=== PATIENT | male | born 1980 | race Caucasian/White ===

== ENCOUNTER 2019-12-04 08:18 | Inpatient (IN) | payer OTHER ==
--- NOTE | 2019-12-04 08:36 | BHS.RME ---
Substance Use & Tx History - Substance Use History Alcohol Substance amount: 2 pints Vodka Frequency of use: Daily Substance route: Oral Date of Last Use: 12/04/19 (First use age 13 y. No seizures. Yes blackouts, last was 2 nights ago. 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) Cocaine- Powder Substance amount: 1-3 grams Frequency of use: Less than 3 times per week Substance route: Inhalation (ex: sniffing or snorting) Date of Last Use: 12/03/19 (First use age 17 y) Nicotine Substance amount: 2 packs Frequency of use: Daily Substance route: Smoking Date of Last Use: 12/04/19 (Began age 13 y) - Last Treatment Date of last treatment: 11/18/28 to 11/21/19 Physical/Psych/Mental Status - Behavior General Behavior: Decreased activity Eye Contact: Normal - Cooperativeness Cooperativeness: Cooperative - Thinking Thought Processes: Tight Thought content: Future oriented - Physical Health Problems Is patient presently having any pain?: No Does patient presently have any injuries (include location): No Does patient currently have a fever: No CIWA Nausea/Vomitin Muscle Tremors: 2 Anxiety: 3 Agitation: 0-Normal Activity Paroxysmal Sweats: No Perspiration Orientation: 0-Oriented Tacttile Disturbances: 1-Very Mild Itch/Numbness Auditory Disturbances: 2-Mild Harshness/Frighten Visual Disturbances: 2-Mild Sensitivity Headache: 3-Moderate CIWA-Ar Total Score: 16
--- NOTE | 2019-12-04 09:38 | HP ---
CIWA Score Nausea/Vomitin Muscle Tremors: 2 Anxiety: 3 Agitation: 0-Normal Activity Paroxysmal Sweats: No Perspiration Orientation: 0-Oriented Tacttile Disturbances: 1-Very Mild Itch/Numbness Auditory Disturbances: 2-Mild Harshness/Frighten Visual Disturbances: 2-Mild Sensitivity Headache: 3-Moderate CIWA-Ar Total Score: 16 - Admission Criteria [facility]ASAS Guidelines: Admission for Medically Managed Detox: Requires at least one of the followin. CIWA greater than 12 2. Seizures within the past 24 hours 3. Delirium tremens within the past 24 hours 4. Hallucinations within the past 24 hours 5. Acute intervention needed for co occurring medical disorder 6. Acute intervention needed for co occurring psychiatric disorder 7. Severe withdrawal that cannot be handled at a lower level of care (continued vomiting, continued diarrhea, abnormal vital signs) requiring intravenous medication and/or fluids 8. Admitting History and Physical - Admission Chief Complaint: Mr. Perales is a 39 yo gentleman who presents to [facility] stating he is here for "alcohol and drug addiction". History of Present Illness: Mr. Perales is a 39 yo gentleman who presents to [facility] stating he is here for "alcohol and drug addiction". He was last here on November 18 and left AMA on November 20. Additionally, he left [facility] in October of this year stating he had "bills to be paid". PMH/Psych/Legal: none PSH:appendectomy, bilateral carpal tunnel release SOC: lives with girlfriend Substance Use History Alcohol Substance amount: 2 pints Vodka Frequency of use: Daily Substance route: Oral Date of Last Use: 12/04/19 (First use age 13 y. No seizures. Yes blackouts, last was 2 nights ago. 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) Cocaine- Powder Substance amount: 1-3 grams Frequency of use: Less than 3 times per week Substance route: Inhalation (ex: sniffing or snorting) Date of Last Use: 12/03/19 (First use age 17 y) Nicotine Substance amount: 2 packs Frequency of use: Daily Substance route: Smoking Date of Last Use: 12/04/19 (Began age 13 y) - Last Treatment Date of last treatment: 11/18/28 to 11/21/19 - Past Surgical History Past Surgical History: Yes: Appendectomy - Smoking History Smoking history: Current every day smoker Have you smoked in the past 12 months: Yes Aproximately how many cigarettes per day: 20 - Alcohol/Substance Use Hx Alcohol Use: Yes Number of Drinks Daily: 20 History of Substance Use: reports: Cocaine - Social History ADL: Independent Occupation: unemployed History of Recent Travel: No Admission ROS BHS - HPI Allergies/Adverse Reactions: Allergies Allergy/AdvReac Type Severity Reaction Status Date / Time aspirin Allergy Severe Difficulty Verified 12/04/19 09:30 Breathing shellfish derived Allergy Severe Swelling Verified 12/04/19 09:30 Exam Limitations: No Limitations - Ebola screening Have you traveled outside of the country in the last 21 days: No Have you been sick,other than usual withdrawal symptoms: No Do you have a fever: No - Review of Systems Constitutional: Loss of Appetite EENT: reports: Hearing Loss (left ear) Respiratory: reports: No Symptoms reported Cardiac: reports: No Symptoms Reported GI: reports: Nausea, Vomiting : reports: Other (hesitancy) Musculoskeletal: reports: No Symptoms Reported Integumentary: reports: No Symptoms Reported Neuro: reports: Headache Endocrine: reports: No Symptoms Reported Hematology: reports: No Symptoms Reported Psychiatric: reports: Anxious Patient History - Patient Medical History Hx Anemia: No Hx Asthma: No Hx Chronic Obstructive Pulmonary Disease (COPD): No Hx Cancer: No Hx Cardiac Disorders: No Hx Congestive Heart Failure: No Hx Hypertension: No Hx Hypercholesterolemia: No Hx Pacemaker: No HX Cerebrovascular Accident: No Hx Seizures: No Hx Dementia: No Hx Diabetes: No Hx Gastrointestinal Disorders: No Hx Liver Disease: No Hx Genitourinary Disorders: No Hx Sexually Transmitted Disorders: No Hx Renal Disease (ESRD): No Hx Thyroid Disease: No Hx Human Immunodeficiency Virus (HIV): No Hx Hepatitis C: No Hx Depression: No Hx Suicide Attempt: No Hx Bipolar Disorder: No Hx Schizophrenia: No - Patient Surgical History Past Surgical History: Yes Hx Neurologic Surgery: No Hx Cataract Extraction: No Hx Cardiac Surgery: No Hx Lung Surgery: No Hx Breast Surgery: No Hx Breast Biopsy: No Hx Abdominal Surgery: No Hx Appendectomy: Yes Hx Cholecystectomy: No Hx Genitourinary Surgery: No Hx Section: No Hx Orthopedic Surgery: Yes (carpal tunnel surgeries bilaterally) Hx Hysterectomy: No Anesthesia Reaction: No - PPD History Date: 10/26/19 - Smoking Cessation Smoking history: Current every day smoker Have you smoked in the past 12 months: Yes Aproximately how many cigarettes per day: 20 Hx Chewing Tobacco Use: No Initiated information on smoking cessation: Yes 'Breaking Loose' booklet given: 12/04/19 - Substances abused Alcohol Substance route: Oral Frequency: Daily Amount used: 3 pints Age of first use: 13 Date of last use: 12/04/19 Admission Physical Exam [facility] - Physical General Appearance: Yes: Nourished, Intoxicated HEENTM: Yes: Hearing grossly Normal, Normocephalic, Normal Voice Respiratory: Yes: Lungs Clear, Normal Breath Sounds Neck: Yes: Within Normal Limits, Supple Breast: Yes: Breast Exam Deferred Cardiology: Yes: Regular Rhythm, Regular Rate, S1, S2 Abdominal: Yes: Normal Bowel Sounds, Non Tender, Flat, Soft Genitourinary: Yes: Other (deferred) Back: Yes: Normal Inspection Musculoskeletal: Yes: Gait Steady Extremities: Yes: Normal Inspection, Non-Tender Neurological: Yes: Alert, Normal Mood/Affect, Normal Response Integumentary: Yes: Normal Color, Dry, Warm - Diagnostic (1) Cocaine use disorder Current Visit: Yes Status: Acute (2) Alcohol dependence with withdrawal Current Visit: Yes Status: Acute Qualifiers: Complication of substance-induced condition: uncomplicated Qualified Code(s): F10.230 - Alcohol dependence with withdrawal, uncomplicated (3) Nicotine dependence Current Visit: Yes Status: Acute Qualifiers: Nicotine product type: cigarettes Substance use status: uncomplicated Qualified Code(s): F17.210 - Nicotine dependence, cigarettes, uncomplicated Cleared for Admission [facility] - Detox or Rehab [facility] Level of Care: Medically Managed Detox Regimen/Protocol: Librium Breathalyzer - Breathalyzer Breathalyzer: 0.230 Urine Drug Screen - Test Device Lot number: [id number] Expiration date: 02/01/21 - Control Is test valid?: Yes - Results Drug screen NEGATIVE: No Urine drug screen results: ARMEN-Cocaine, BZO-Benzodiazepines Inpatient Rehab Admission - Rehab Decision to Admit Inpatient rehab admission?: No
[2019-12-04 09:40] VITALS: BMI 29.6
[2019-12-04] MEDS ORDERED: ACETAMINOPHEN 325 MG TABLET (FP) PO PRN (09:42)
[2019-12-04] MEDS ORDERED: IBUPROFEN 400 MG TABLET (FP) PO PRN (09:42)
[2019-12-04] MEDS ORDERED: MENTHOL/PHENOL 1 EACH UD MM PRN (09:42)
[2019-12-04] MEDS ORDERED: ONDANSETRON *ODT* 4 MG TABLET SL PRN (09:42)
[2019-12-04] MEDS ORDERED: chlordiazePOXIDE HCL 25 MG CAPSULE PO PRN (09:42)
[2019-12-04] MEDS ORDERED: BISMUTH SUBSALICYLATE 524 MG/30 ML UD PO PRN (09:42)
[2019-12-04] MEDS ORDERED: MAGNESIUM HYDROX 2400MG/30ML ORAL SUSPENSION 30 ML CUP PO PRN (09:42)
[2019-12-04] MEDS ORDERED: MAG HYDROX/AL HYDROX/SIMETH 30 ML UNIT-DOSE CUP PO PRN (09:42)
[2019-12-04] MEDS ORDERED: MAGNESIUM CITRATE 300 ML BOTTLE PO PRN (09:42)
[2019-12-04] MEDS ORDERED: hydrOXYzine PAMOATE 25 MG CAPSULE (FP) PO SCH (10:00)
--- NOTE | 2019-12-04 11:22 | CONSULT ---
[facility] Psychiatric Consult - Data Date of interview: 12/04/19 Admission source: Self-referred Identifying data: Mr Pulido is a 39 years old single male, unemployed receiving unemployment, domiciled seeking detox treatment for alcohol and cocaine Substance Abuse History: Reports history of alcohol and cocaine use. Refer to addition counselor's summary for further information Medical History: Significant for history of childhood asthma, appendectomy at age 15 and surgery for carpal tunnel syndrome both hands. Smokes cigarettes 1 ppd Psychiatric History: Patient is known for two previous admission to this facility. He denies history of previous previous psychiatric treatment. However, reports suffering from anxiety and insomnia. During his first admission to this facility, he saw JONATHAN Farmer on 10/26/19 and he was prescribed Gabapentin 200 mg/tid and Melatonin 10 mg/hs prn for insomnia. He saw specifications writer on his second admission on 11/20/19 and he was prescribed Vistaril 50 mg po Q 4hrs prn for anxiety and Melatonin 10 mg/hs prn for insomnia. Denies previous psychiatric hospitalization or suicidal attempt. At present, reports feeling depressed, anxious and sleeping poorly. Requests to be ordered Vistaril and Melatonin. Physical/Sexual Abuse/Trauma History: Denies history of abuse as a child or DV relationship as an adult Mental Status Exam - Mental Status Exam Alert and Oriented to: Time, Person Mood: Depressed, Anxious Affect: Appropriate Speech Pattern: Clear Voice Loudness: Normal Thought Process: Intact, Goal Oriented Hallucinations: Denies Suicidal Ideation: Denies Homicidal Ideation: Denies Insight/Judgement: Poor Sleep: Poorly Appetite: Poor Muscle strength/Tone: Normal Gait/Station: Normal Psychiatric Findings - Problem List ([place] 1, 2,3) (1) Substance induced mood disorder Current Visit: No Status: Acute (2) Substance-induced anxiety disorder Current Visit: No Status: Acute (3) Substance-induced sleep disorder Current Visit: No Status: Acute (4) Alcohol dependence with withdrawal Current Visit: Yes Status: Acute Qualifiers: Complication of substance-induced condition: uncomplicated Qualified Code(s): F10.230 - Alcohol dependence with withdrawal, uncomplicated (5) Cocaine use disorder Current Visit: Yes Status: Acute (6) Nicotine dependence Current Visit: Yes Status: Chronic Qualifiers: Nicotine product type: cigarettes Substance use status: uncomplicated Qualified Code(s): F17.210 - Nicotine dependence, cigarettes, uncomplicated (7) Carpal tunnel syndrome on both sides Current Visit: No Status: Resolved (8) S/P appendectomy Current Visit: No Status: Resolved - Initial Treatment Plan Initial Treatment Plan: 1) Start Vistaril 50 mg po Q 4hrs prn for anxiety and Melatonin 50 mg HS prn for insomnia. 2) Continue inpatient detoxification
[2019-12-04] MEDS: NICOTINE 21 MG/24 HOURS TOPICAL PATCH TD SCH (11:27)
[2019-12-04] MEDS: PRENATAL VITAMINS W/ FOLIC ACID TABLET (FP) PO SCH (11:28)
[2019-12-04] MEDS: chlordiazePOXIDE HCL 25 MG CAPSULE PO SCH ×3 (11:28→22:30)
[2019-12-04] MEDS: NICOTINE POLACRILEX 2 MG GUM BUC PRN ×3 (11:29→22:36)
[2019-12-04] MEDS ORDERED: hydrOXYzine PAMOATE 25 MG CAPSULE (FP) PO ONE (12:00)
[2019-12-04 15:18] LABS: HEMATOCRIT 48.8 % (35.4-49); MCH 30.6 pg (25.7-33.7); MCHC 32.9 g/dl (32.0-35.9); MEAN CELL VOLUME 93.2 fl (80-96); MEAN PLT VOLUME 9.1 fl (7.5-11.1); PLATELET COUNT 242 K/MM3 (134-434); RBC 5.23 M/mm3 (4.00-5.60)
[2019-12-04 15:36] LABS: ALBUMIN 4.1 g/dl (3.4-5.0); BLOOD UREA NITROGEN 15.6 mg/dL (7-18); CALCIUM 8.6 mg/dL (8.5-10.1); CREATININE 0.9 mg/dL (0.55-1.3); POTASSIUM 3.9 mmol/L (3.5-5.1); TOT PROT 7.8 g/dl (6.4-8.2)
[2019-12-04 15:42] LABS: BILIRUBIN,TOTAL 0.6 mg/dL (0.2-1)
[2019-12-04] MEDS: ACETAMINOPHEN 325 MG TABLET (FP) PO PRN (17:33)
[2019-12-04] MEDS: hydrOXYzine PAMOATE 50 MG CAPSULE (FP) PO PRN ×2 (17:33→22:34)
[2019-12-04] MEDS ORDERED: MELATONIN 5 MG TABLETS PO SCH (22:00)
[2019-12-04] MEDS: THIAMINE HCL 100 MG TABLET (FP) PO SCH (22:30)
[2019-12-04] MEDS: MELATONIN 5 MG TABLETS PO PRN (22:31)
[2019-12-05] MEDS: chlordiazePOXIDE HCL 25 MG CAPSULE PO SCH ×4 (05:28→22:04)
[2019-12-05] MEDS: hydrOXYzine PAMOATE 50 MG CAPSULE (FP) PO PRN ×4 (05:30→22:04)
[2019-12-05] MEDS: ACETAMINOPHEN 325 MG TABLET (FP) PO PRN ×4 (05:36→23:07)
[2019-12-05] MEDS: NICOTINE POLACRILEX 2 MG GUM BUC PRN (05:37)
[2019-12-05] MEDS: PRENATAL VITAMINS W/ FOLIC ACID TABLET (FP) PO SCH (10:34)
[2019-12-05] MEDS: NICOTINE 21 MG/24 HOURS TOPICAL PATCH TD SCH (10:34)
[2019-12-05] MEDS: NICOTINE POLACRILEX 4 MG GUM BUC PRN ×5 (10:40→22:05)
--- NOTE | 2019-12-05 11:38 | PN ---
S CIWA - CIWA Score Nausea/Vomitin Muscle Tremors: 3 Anxiety: 3 Agitation: 3 Paroxysmal Sweats: No Perspiration Orientation: 0-Oriented Tacttile Disturbances: 1-Very Mild Itch/Numbness Auditory Disturbances: 0-None Visual Disturbances: 0-None Headache: 2-Mild CIWA-Ar Total Score: 14 S Progress Note (SOAP) Subjective: alert,irritable,anxious,interrupted sleep,tremor,pain in the body and back,nausea Objective: 12/05/19 11:36 Vital Signs Temperature 97.3 F L 12/05/19 08:30 Pulse Rate 75 12/05/19 08:30 Respiratory Rate 18 12/05/19 08:30 Blood Pressure 134/94 12/05/19 08:30 O2 Sat by Pulse Oximetry (%) 98 12/05/19 06:18 12/05/19 11:36 Laboratory Last Values WBC 7.0 K/mm3 (4.0-10.0) 12/04/19 11:20 RBC 5.23 M/mm3 (4.00-5.60) 12/04/19 11:20 Hgb 16.0 GM/dL (11.7-16.9) 12/04/19 11:20 Hct 48.8 % (35.4-49) 12/04/19 11:20 MCV 93.2 fl (80-96) 12/04/19 11:20 MCH 30.6 pg (25.7-33.7) 12/04/19 11:20 MCHC 32.9 g/dl (32.0-35.9) 12/04/19 11:20 RDW 14.0 % (11.9-15.9) 12/04/19 11:20 Plt Count 242 K/MM3 (134-434) 12/04/19 11:20 MPV 9.1 fl (7.5-11.1) 12/04/19 11:20 Sodium 145 mmol/L (136-145) 12/04/19 11:20 Potassium 3.9 mmol/L (3.5-5.1) 12/04/19 11:20 Chloride 108 mmol/L (98-107) H 12/04/19 11:20 Carbon Dioxide 28 mmol/L (21-32) 12/04/19 11:20 Anion Gap 9 MMOL/L (8-16) 12/04/19 11:20 BUN 15.6 mg/dL (7-18) 12/04/19 11:20 Creatinine 0.9 mg/dL (0.55-1.3) 12/04/19 11:20 Est GFR (CKD-EPI)AfAm 123.39 12/04/19 11:20 Est GFR (CKD-EPI)NonAf 106.46 12/04/19 11:20 Random Glucose 86 mg/dL (74-106) 12/04/19 11:20 Calcium 8.6 mg/dL (8.5-10.1) 12/04/19 11:20 Total Bilirubin 0.6 mg/dL (0.2-1) 12/04/19 11:20 AST 38 U/L (15-37) H 12/04/19 11:20 ALT 62 U/L (13-61) H 12/04/19 11:20 Alkaline Phosphatase 71 U/L (45-117) 12/04/19 11:20 Total Protein 7.8 g/dl (6.4-8.2) 12/04/19 11:20 Albumin 4.1 g/dl (3.4-5.0) 12/04/19 11:20 Syphilis Serology Non-reactive (NONREACTIVE) 12/04/19 11:20 Assessment: 12/05/19 11:37 withdrawal symptom Plan: continue detox librium regimen
[2019-12-05] MEDS: MELATONIN 5 MG TABLETS PO PRN (22:03)
[2019-12-05] MEDS: THIAMINE HCL 100 MG TABLET (FP) PO SCH (22:03)
[2019-12-05] MEDS: METHOCARBAMOL 500 MG TABLET PO PRN (22:04)
[2019-12-06] MEDS: NICOTINE POLACRILEX 4 MG GUM BUC PRN ×6 (03:53→22:30)
[2019-12-06] MEDS: ACETAMINOPHEN 325 MG TABLET (FP) PO PRN ×3 (05:35→22:27)
[2019-12-06] MEDS: hydrOXYzine PAMOATE 50 MG CAPSULE (FP) PO PRN ×4 (05:35→19:54)
[2019-12-06] MEDS: chlordiazePOXIDE HCL 25 MG CAPSULE PO SCH ×4 (05:35→22:25)
[2019-12-06] MEDS: METHOCARBAMOL 500 MG TABLET PO PRN ×2 (06:19→22:26)
[2019-12-06] MEDS: NICOTINE 21 MG/24 HOURS TOPICAL PATCH TD SCH (10:27)
[2019-12-06] MEDS: PRENATAL VITAMINS W/ FOLIC ACID TABLET (FP) PO SCH (10:27)
[2019-12-06] MEDS ORDERED: cloNIDine HCL 0.1 MG TABLET PO ONE (13:09)
--- NOTE | 2019-12-06 13:33 | PN ---
S CIWA - CIWA Score Nausea/Vomitin-No Nausea/No Vomiting Muscle Tremors: None Anxiety: 6 Agitation: 4-Moderately Restless Paroxysmal Sweats: 3 Orientation: 0-Oriented Tacttile Disturbances: 1-Very Mild Itch/Numbness Auditory Disturbances: 0-None Visual Disturbances: 0-None Headache: 0-None Present CIWA-Ar Total Score: 14 BHS Progress Note (SOAP) Subjective: Anxious, Restless, Sweating, Interrupted Sleep. Objective: Patient A & O X 3, Observed Ambulating on Detox Unit Unassisted. In No Acute Distress. 12/06/19 13:30 Vital Signs Temperature 97.1 F L 12/06/19 12:20 Pulse Rate 67 12/06/19 12:20 Respiratory Rate 16 12/06/19 12:20 Blood Pressure 121/91 12/06/19 12:20 O2 Sat by Pulse Oximetry (%) 98 12/06/19 12:20 Laboratory Tests 12/04/19 12/04/19 12/04/19 11:20 11:20 11:20 WBC 7.0 RBC 5.23 Hgb 16.0 Hct 48.8 MCV 93.2 MCH 30.6 MCHC 32.9 RDW 14.0 Plt Count 242 MPV 9.1 Sodium 145 Potassium 3.9 Chloride 108 H Carbon Dioxide 28 Anion Gap 9 BUN 15.6 Creatinine 0.9 Est GFR (CKD-EPI)AfAm 123.39 Est GFR (CKD-EPI)NonAf 106.46 Random Glucose 86 Calcium 8.6 Total Bilirubin 0.6 AST 38 H ALT 62 H Alkaline Phosphatase 71 Total Protein 7.8 Albumin 4.1 Syphilis Serology Non-reactive COVID-19 ([facility]) 12/04/19 11:30 WBC RBC Hgb Hct MCV MCH MCHC RDW Plt Count MPV Sodium Potassium Chloride Carbon Dioxide Anion Gap BUN Creatinine Est GFR (CKD-EPI)AfAm Est GFR (CKD-EPI)NonAf Random Glucose Calcium Total Bilirubin AST ALT Alkaline Phosphatase Total Protein Albumin Syphilis Serology COVID-19 ([facility]) Not detected Lab Results Noted. Assessment: 12/06/19 13:31 WITHDRAWAL SYMPTOMS. Laboratory Tests 12/04/19 12/04/19 12/04/19 11:20 11:20 11:20 WBC 7.0 RBC 5.23 Hgb 16.0 Hct 48.8 MCV 93.2 MCH 30.6 MCHC 32.9 RDW 14.0 Plt Count 242 MPV 9.1 Sodium 145 Potassium 3.9 Chloride 108 H Carbon Dioxide 28 Anion Gap 9 BUN 15.6 Creatinine 0.9 Est GFR (CKD-EPI)AfAm 123.39 Est GFR (CKD-EPI)NonAf 106.46 Random Glucose 86 Calcium 8.6 Total Bilirubin 0.6 AST 38 H ALT 62 H Alkaline Phosphatase 71 Total Protein 7.8 Albumin 4.1 Syphilis Serology Non-reactive COVID-19 ([facility]) 12/04/19 11:30 WBC RBC Hgb Hct MCV MCH MCHC RDW Plt Count MPV Sodium Potassium Chloride Carbon Dioxide Anion Gap BUN Creatinine Est GFR (CKD-EPI)AfAm Est GFR (CKD-EPI)NonAf Random Glucose Calcium Total Bilirubin AST ALT Alkaline Phosphatase Total Protein Albumin Syphilis Serology COVID-19 ([facility]) Not detected Lab Results noted. Plan: Continue Detox. Increase daily oral Water Intake. PRN LIbrium for severe Anxiety and withdrawal symptoms. Clonidine, 0.1 mg orally X 1 dose ordered for severe Anxiety and withdrawal symptoms.
[2019-12-06] MEDS: MELATONIN 5 MG TABLETS PO PRN (22:26)
[2019-12-06] MEDS: THIAMINE HCL 100 MG TABLET (FP) PO SCH (22:26)
[2019-12-07] MEDS ORDERED: chlordiazePOXIDE HCL 10 MG CAPSULE PO PRN
[2019-12-07] MEDS: hydrOXYzine PAMOATE 50 MG CAPSULE (FP) PO PRN (05:19)
[2019-12-07] MEDS: ACETAMINOPHEN 325 MG TABLET (FP) PO PRN (05:19)
[2019-12-07] MEDS: chlordiazePOXIDE HCL 10 MG CAPSULE PO SCH ×2 (05:19→11:08)
[2019-12-07] MEDS: NICOTINE POLACRILEX 4 MG GUM BUC PRN (05:20)
[2019-12-07 09:10] VITALS: BP 115/73; PULSE 90; TEMP 98.3
[2019-12-07] MEDS: NICOTINE 21 MG/24 HOURS TOPICAL PATCH TD SCH (10:37)
[2019-12-07] MEDS: PRENATAL VITAMINS W/ FOLIC ACID TABLET (FP) PO SCH (10:37)
--- NOTE | 2019-12-07 11:01 | PN ---
[facility] CIWA - CIWA Score Nausea/Vomitin-No Nausea/No Vomiting Muscle Tremors: 1-None Visible, but [place] Anxiety: 3 Agitation: 2 Paroxysmal Sweats: No Perspiration Orientation: 0-Oriented Tacttile Disturbances: 0-None Auditory Disturbances: 1-Very Mild Visual Disturbances: 0-None Headache: 0-None Present CIWA-Ar Total Score: 7 S Progress Note (SOAP) Subjective: Complaining of anxiety and agitation related to his friend's brother's a few days ago and wants to go today. Objective: 12/07/19 10:59 Vital Signs 12/07/19 12/07/19 12/07/19 03:32 05:15 08:47 Temperature 97.5 F L 98.3 F Pulse Rate 97 H 90 Respiratory 18 16 16 Rate Blood Pressure 116/70 115/73 O2 Sat by Pulse 99 Oximetry (%) Laboratory Last Values WBC 7.0 K/mm3 (4.0-10.0) 12/04/19 11:20 RBC 5.23 M/mm3 (4.00-5.60) 12/04/19 11:20 Hgb 16.0 GM/dL (11.7-16.9) 12/04/19 11:20 Hct 48.8 % (35.4-49) 12/04/19 11:20 MCV 93.2 fl (80-96) 12/04/19 11:20 MCH 30.6 pg (25.7-33.7) 12/04/19 11:20 MCHC 32.9 g/dl (32.0-35.9) 12/04/19 11:20 RDW 14.0 % (11.9-15.9) 12/04/19 11:20 Plt Count 242 K/MM3 (134-434) 12/04/19 11:20 MPV 9.1 fl (7.5-11.1) 12/04/19 11:20 Sodium 145 mmol/L (136-145) 12/04/19 11:20 Potassium 3.9 mmol/L (3.5-5.1) 12/04/19 11:20 Chloride 108 mmol/L (98-107) H 12/04/19 11:20 Carbon Dioxide 28 mmol/L (21-32) 12/04/19 11:20 Anion Gap 9 MMOL/L (8-16) 12/04/19 11:20 BUN 15.6 mg/dL (7-18) 12/04/19 11:20 Creatinine 0.9 mg/dL (0.55-1.3) 12/04/19 11:20 Est GFR (CKD-EPI)AfAm 123.39 12/04/19 11:20 Est GFR (CKD-EPI)NonAf 106.46 12/04/19 11:20 Random Glucose 86 mg/dL (74-106) 12/04/19 11:20 Calcium 8.6 mg/dL (8.5-10.1) 12/04/19 11:20 Total Bilirubin 0.6 mg/dL (0.2-1) 12/04/19 11:20 AST 38 U/L (15-37) H 12/04/19 11:20 ALT 62 U/L (13-61) H 12/04/19 11:20 Alkaline Phosphatase 71 U/L (45-117) 12/04/19 11:20 Total Protein 7.8 g/dl (6.4-8.2) 12/04/19 11:20 Albumin 4.1 g/dl (3.4-5.0) 12/04/19 11:20 Syphilis Serology Non-reactive (NONREACTIVE) 12/04/19 11:20 COVID-19 ([facility]) Not detected (Not Detected) 12/04/19 11:30 Reviewed. Assessment: Alert and oriented x3, in no acute respiratory distress Full ROM, skin warm to touch, ambulatory on unit without assistance. Wants to discharged today. Mild withdrawal symptoms For discharge today. Plan: Discharge today.
--- NOTE | 2019-12-07 11:08 | DS ---
[facility] Detox Discharge Summary Admission Date: 12/04/19 Discharge Date: 12/07/19 - History Present History: Alcohol Dependence, Cocaine Dependence Pertinent Past History: history of appendectomy, Alcohol, Cocaine and Nicotine use disorder. - Physical Exam Results Vital Signs: Vital Signs Temperature 98.3 F 12/07/19 08:47 Pulse Rate 90 12/07/19 08:47 Respiratory Rate 16 12/07/19 08:47 Blood Pressure 115/73 12/07/19 08:47 O2 Sat by Pulse Oximetry (%) 99 12/07/19 05:15 Vital Signs 12/07/19 12/07/19 12/07/19 03:32 05:15 08:47 Temperature 97.5 F L 98.3 F Pulse Rate 97 H 90 Respiratory 18 16 16 Rate Blood Pressure 116/70 115/73 O2 Sat by Pulse 99 Oximetry (%) Laboratory Last Values WBC 7.0 K/mm3 (4.0-10.0) 12/04/19 11:20 RBC 5.23 M/mm3 (4.00-5.60) 12/04/19 11:20 Hgb 16.0 GM/dL (11.7-16.9) 12/04/19 11:20 Hct 48.8 % (35.4-49) 12/04/19 11:20 MCV 93.2 fl (80-96) 12/04/19 11:20 MCH 30.6 pg (25.7-33.7) 12/04/19 11:20 MCHC 32.9 g/dl (32.0-35.9) 12/04/19 11:20 RDW 14.0 % (11.9-15.9) 12/04/19 11:20 Plt Count 242 K/MM3 (134-434) 12/04/19 11:20 MPV 9.1 fl (7.5-11.1) 12/04/19 11:20 Sodium 145 mmol/L (136-145) 12/04/19 11:20 Potassium 3.9 mmol/L (3.5-5.1) 12/04/19 11:20 Chloride 108 mmol/L (98-107) H 12/04/19 11:20 Carbon Dioxide 28 mmol/L (21-32) 12/04/19 11:20 Anion Gap 9 MMOL/L (8-16) 12/04/19 11:20 BUN 15.6 mg/dL (7-18) 12/04/19 11:20 Creatinine 0.9 mg/dL (0.55-1.3) 12/04/19 11:20 Est GFR (CKD-EPI)AfAm 123.39 12/04/19 11:20 Est GFR (CKD-EPI)NonAf 106.46 12/04/19 11:20 Random Glucose 86 mg/dL (74-106) 12/04/19 11:20 Calcium 8.6 mg/dL (8.5-10.1) 12/04/19 11:20 Total Bilirubin 0.6 mg/dL (0.2-1) 12/04/19 11:20 AST 38 U/L (15-37) H 12/04/19 11:20 ALT 62 U/L (13-61) H 12/04/19 11:20 Alkaline Phosphatase 71 U/L (45-117) 12/04/19 11:20 Total Protein 7.8 g/dl (6.4-8.2) 12/04/19 11:20 Albumin 4.1 g/dl (3.4-5.0) 12/04/19 11:20 Syphilis Serology Non-reactive (NONREACTIVE) 12/04/19 11:20 COVID-19 ([facility]) Not detected (Not Detected) 12/04/19 11:30 Labs reviewed. Pertinent Admission Physical Exam Findings: Withdrawal symptoms. - Treatment Hospital Course: Detox Protocol Followed, Detoxed Safely, Responded well, Discharged Condition Good - Medication Discharge Medications: Ambulatory Orders NK [No Known Home Medication] 12/04/19 - Diagnosis (1) Alcohol dependence with withdrawal Current Visit: Yes Status: Acute Qualifiers: Complication of substance-induced condition: uncomplicated Qualified Code(s): F10.230 - Alcohol dependence with withdrawal, uncomplicated (2) Cocaine use disorder Current Visit: Yes Status: Chronic (3) Nicotine dependence Current Visit: Yes Status: Chronic Qualifiers: Nicotine product type: cigarettes Substance use status: uncomplicated Qualified Code(s): F17.210 - Nicotine dependence, cigarettes, uncomplicated - AMA Did Patient Leave Against Medical Advice: No
[2019-12-08] MEDS ORDERED: chlordiazePOXIDE HCL 10 MG CAPSULE PO SCH (05:00)
[2019-12-09] MEDS ORDERED: chlordiazePOXIDE HCL 10 MG CAPSULE PO ONE (05:00)
== END 2019-12-07 11:15 | disposition home or self-care (01) | DRG 774 ==
LOC: YASAS 08:18 → Y6N 10:19
PROVIDERS: ADMIT Allergy & Immunology; ATTEND Allergy & Immunology
PROC: HZ2ZZZZ Detoxification Services for Substance Abuse Treatment (ICD-10-PCS; principal; 2019-12-04)
DX: F10.230 Alcohol dependence with withdrawal, uncomplicated (principal); F14.10 Cocaine abuse, uncomplicated; F17.210 Nicotine dependence, cigarettes, uncomplicated; F19.280 Other psychoactive substance dependence with psychoactive substance-induced anxiety disorder; F19.282 Other psychoactive substance dependence with psychoactive substance-induced sleep disorder; F19.24 Other psychoactive substance dependence with psychoactive substance-induced mood disorder; H91.92 Unspecified hearing loss, left ear; J45.909 Unspecified asthma, uncomplicated; Z87.39 Personal history of other diseases of the musculoskeletal system and connective tissue; Z98.890 Other specified postprocedural states; Z88.6 Allergy status to analgesic agent; Z91.018 Allergy to other foods
CPT/HCPCS: 36415; 80053; 85027; 86780; J0735; U0003

== ENCOUNTER 2019-12-08 09:10 | Inpatient (IN) | payer OTHER ==
--- NOTE | 2019-12-08 09:44 | BHS.RME ---
Substance Use & Tx History - Substance Use History Alcohol Substance amount: 2 pints Vodka Frequency of use: Daily Substance route: Oral Date of Last Use: 12/08/19 (First drink age 13 y. No seizures. Has had blackouts, last one one week ago) Nicotine Substance amount: 1-2 packs Frequency of use: Daily Substance route: Smoking Date of Last Use: 12/08/19 (First smoke age 13 y) Cocaine- Powder Substance amount: 1.5 to 2 grams Frequency of use: Daily Substance route: Inhalation (ex: sniffing or snorting) Date of Last Use: 12/07/19 (First use age 17y) - Last Treatment Date of last treatment: 12/03 to 12/07/19 Treatment type: Substance Use Disorder ([facility]) Where was last treatment: Detox Physical/Psych/Mental Status - Behavior General Behavior: Decreased activity Eye Contact: Normal - Cooperativeness Cooperativeness: Cooperative - Thinking Thought content: Future oriented - Physical Health Problems Is patient presently having any pain?: No Does patient presently have any injuries (include location): Yes (cut right hand on a handle of coffee table yesterday) Does patient currently have a fever: No CIWA Nausea/Vomitin-Mild Nausea/No Vomiting Muscle Tremors: None Anxiety: 2 Agitation: 0-Normal Activity Paroxysmal Sweats: No Perspiration Orientation: 1-Uncertain about Date Tacttile Disturbances: 0-None Auditory Disturbances: 0-None Visual Disturbances: 2-Mild Sensitivity Headache: 2-Mild CIWA-Ar Total Score: 8
--- NOTE | 2019-12-08 11:10 | HP ---
CIWA Score Nausea/Vomitin-Mild Nausea/No Vomiting Muscle Tremors: None Anxiety: 2 Agitation: 0-Normal Activity Paroxysmal Sweats: No Perspiration Orientation: 1-Uncertain about Date Tacttile Disturbances: 0-None Auditory Disturbances: 0-None Visual Disturbances: 2-Mild Sensitivity Headache: 2-Mild CIWA-Ar Total Score: 8 - Admission Criteria OASAS Guidelines: Admission for Medically Managed Detox: Requires at least one of the followin. CIWA greater than 12 2. Seizures within the past 24 hours 3. Delirium tremens within the past 24 hours 4. Hallucinations within the past 24 hours 5. Acute intervention needed for co occurring medical disorder 6. Acute intervention needed for co occurring psychiatric disorder 7. Severe withdrawal that cannot be handled at a lower level of care (continued vomiting, continued diarrhea, abnormal vital signs) requiring intravenous medication and/or fluids 8. Admitting History and Physical - Admission Chief Complaint: Mr. Pulido presents to [facility] requesting admission to rehab for a history of alcohol use disorder. History of Present Illness: Mr. Pulido presents to [facility] requesting admission to rehab for a history of alcohol use disorder. He left here yesterday from detox. He went out and within one hour he began drinking. He also used cocaine. PMH/ Psych//Legal: none PSH: appendectomy, bilateral carpal tunnel release SOC: lives with girlfriend Substance Use History Alcohol Substance amount: 2 pints Vodka Frequency of use: Daily Substance route: Oral Date of Last Use: 12/08/19 (First drink age 13 y. No seizures. Has had blackouts, last one one week ago) Nicotine Substance amount: 1-2 packs Frequency of use: Daily Substance route: Smoking Date of Last Use: 12/08/19 (First smoke age 13 y) Cocaine- Powder Substance amount: 1.5 to 2 grams Frequency of use: Daily Substance route: Inhalation (ex: sniffing or snorting) Date of Last Use: 12/07/19 (First use age 17y) - Last Treatment Date of last treatment: 12/03 to 12/07/19 Treatment type: Substance Use Disorder ([facility]) Where was last treatment: Detox History Source: Patient Limitations to Obtaining History: No Limitations - Past Surgical History Past Surgical History: Yes: Appendectomy - Smoking History Smoking history: Current every day smoker Have you smoked in the past 12 months: Yes Aproximately how many cigarettes per day: 20 - Alcohol/Substance Use Hx Alcohol Use: Yes Number of Drinks Daily: 20 History of Substance Use: reports: Cocaine - Social History ADL: Independent Occupation: unemployed History of Recent Travel: No Admission ROS S - HPI Allergies/Adverse Reactions: Allergies Allergy/AdvReac Type Severity Reaction Status Date / Time aspirin Allergy Severe Difficulty Verified 12/04/19 09:30 Breathing shellfish derived Allergy Severe Swelling Verified 12/04/19 09:30 Exam Limitations: No Limitations - Ebola screening Have you traveled outside of the country in the last 21 days: No Have you been sick,other than usual withdrawal symptoms: No Do you have a fever: No - Review of Systems Constitutional: No Symptoms Reported EENT: reports: No Symptoms Reported Respiratory: reports: No Symptoms reported Cardiac: reports: No Symptoms Reported GI: reports: Vomiting (this am) : reports: Dysuria Musculoskeletal: reports: No Symptoms Reported Integumentary: reports: Other (right hand thenar eminence) Neuro: reports: Headache Endocrine: reports: No Symptoms Reported Hematology: reports: No Symptoms Reported Psychiatric: reports: Anxious Patient History - Patient Medical History Hx Anemia: No Hx Asthma: Yes (childhood asthma) Hx Chronic Obstructive Pulmonary Disease (COPD): No Hx Cancer: No Hx Cardiac Disorders: No Hx Congestive Heart Failure: No Hx Hypertension: No Hx Hypercholesterolemia: No Hx Pacemaker: No HX Cerebrovascular Accident: No Hx Seizures: No Hx Dementia: No Hx Diabetes: No Hx Gastrointestinal Disorders: No Hx Liver Disease: No Hx Genitourinary Disorders: No Hx Sexually Transmitted Disorders: No Hx Renal Disease (ESRD): No Hx Thyroid Disease: No Hx Human Immunodeficiency Virus (HIV): No Hx Hepatitis C: No Hx Depression: Yes Hx Suicide Attempt: No Hx Bipolar Disorder: No Hx Schizophrenia: No - Patient Surgical History Past Surgical History: Yes Hx Neurologic Surgery: No Hx Cataract Extraction: No Hx Cardiac Surgery: No Hx Lung Surgery: No Hx Breast Surgery: No Hx Breast Biopsy: No Hx Abdominal Surgery: No Hx Appendectomy: Yes Hx Cholecystectomy: No Hx Genitourinary Surgery: No Hx Section: No Hx Orthopedic Surgery: Yes (carpal tunnel surgeries bilaterally) Hx Hysterectomy: No Anesthesia Reaction: No - PPD History Date: 12/06/19 Results: left AMA - Smoking Cessation Smoking history: Current every day smoker Have you smoked in the past 12 months: Yes Aproximately how many cigarettes per day: 20 Hx Chewing Tobacco Use: No Initiated information on smoking cessation: Yes 'Breaking Loose' booklet given: 12/08/19 Admission Physical Exam [facility] Physical General Appearance: Yes: Nourished, Anxious HEENTM: Yes: Hearing grossly Normal, Normocephalic, Normal Voice Respiratory: Yes: Lungs Clear, Normal Breath Sounds Neck: Yes: Within Normal Limits, Supple Breast: Yes: Breast Exam Deferred Cardiology: Yes: Regular Rhythm, Regular Rate, S1, S2 Abdominal: Yes: Normal Bowel Sounds, Flat, Soft, Tenderness (mild diffuse tenderness) Back: Yes: Normal Inspection Musculoskeletal: Yes: full range of Motion Extremities: Yes: Normal Inspection, Non-Tender Neurological: Yes: Alert, Normal Response Integumentary: Yes: Normal Color, Dry, Warm, Other (right hand irregular skin break, site clean and dry, pt had butterfly x2 and band aid dressing on site) Cleared for Admission [facility] - Detox or Rehab [facility] Level of Care: Medically Supervised Breathalyzer - Breathalyzer Breathalyzer: 0.014 Urine Drug Screen - Test Device Lot number: [id number] Expiration date: 02/01/21 - Control Is test valid?: Yes - Results Drug screen NEGATIVE: No Urine drug screen results: ARMEN-Cocaine, BZO-Benzodiazepines Inpatient Rehab Admission - Rehab Decision to Admit Inpatient rehab admission?: Yes - Initial Determination Are CD services needed?: Yes Free of communicable disease: Yes Not in need of hospitalization: Yes - Rehab Admission Criteria Previous failed treatment: Yes Poor recovery environment: Yes Comorbidities: Yes Lacks judgement: Yes Patient is meeting Inpatient Rehab admission criteria:: Yes
[2019-12-08] MEDS ORDERED: LOPERAMIDE HCL 2 MG CAPSULE PO PRN (11:16)
[2019-12-08] MEDS ORDERED: IBUPROFEN 400 MG TABLET (FP) PO PRN (11:16)
[2019-12-08] MEDS ORDERED: MAG HYDROX/AL HYDROX/SIMETH 30 ML UNIT-DOSE CUP PO PRN (11:16)
[2019-12-08] MEDS ORDERED: MAGNESIUM CITRATE 300 ML BOTTLE PO PRN (11:16)
[2019-12-08] MEDS ORDERED: MAGNESIUM HYDROX 2400MG/30ML ORAL SUSPENSION 30 ML CUP PO PRN (11:16)
[2019-12-08] MEDS ORDERED: P-EPHED 60MG/TRIPROLIDI 2.5MG TABLET PO PRN (11:16)
[2019-12-08] MEDS ORDERED: guaiFENesin 200 MG/10 ML 10 ML UNIT-DOSE CUPS PO PRN (11:16)
[2019-12-08 11:38] VITALS: BMI 29.3
[2019-12-08] MEDS ORDERED: BACITRACIN 15 GM TUBE TOPICAL OINTMENT TP SCH (12:00)
--- NOTE | 2019-12-08 13:17 | CONSULT ---
[facility] Psychiatric Consult - Data Date of interview: 12/08/19 Admission source: 6N Identifying data: Mr Pulido is a 39 years old single male, unemployed receiving unemployment, domiciled admitted from detox on 12/08/19 for inpatient rehabilitation treatment for alcohol and cocaine Substance Abuse History: Reports history of alcohol and cocaine use. Refer to addition counselor's summary for further information Medical History: Significant for history of childhood asthma, appendectomy at age 15 and surgery for carpal tunnel syndrome both hands. Smokes cigarettes 1 ppd Psychiatric History: Patient is known for two previous admission to this facility. He was recently seen by securities underwriter on 12/04/19 while admitted to detox. He denies history of previous previous psychiatric treatment. However, reports suffering from anxiety and insomnia. During his recent admission to detox, he he was prescribed Vistaril 50 mg po Q 4hrs and Melatonin 10 mg/hs prn for insomnia by securities underwriter. Denies previous psychiatric hospitalization or suicidal attempt. At present, reports feeling anxious and sleeping poorly. Requests to continue Vistaril and Melatonin as ordered while in detox Physical/Sexual Abuse/Trauma History: Denies history of abuse as a child or DV relationship as an adult Mental Status Exam - Mental Status Exam Alert and Oriented to: Time, Place, Person Cognitive Function: Fair Patient Appearance: Disheveled Mood: Anxious Affect: Appropriate Patient Behavior: Cooperative Speech Pattern: Clear Voice Loudness: Normal Thought Process: Intact, Goal Oriented Thought Disorder: Not Present Hallucinations: Denies Suicidal Ideation: Denies Insight/Judgement: Poor Sleep: Poorly Appetite: Good Muscle strength/Tone: Normal Gait/Station: Normal Psychiatric Findings - Problem List ([place] 1, 2,3) (1) Substance-induced anxiety disorder Current Visit: No Status: Acute (2) Substance-induced sleep disorder Current Visit: No Status: Acute (3) Alcohol dependence Current Visit: Yes Status: Acute (4) Cocaine dependence Current Visit: Yes Status: Acute (5) Nicotine dependence Current Visit: Yes Status: Chronic (6) Carpal tunnel syndrome on both sides Current Visit: No Status: Resolved (7) S/P appendectomy Current Visit: No Status: Resolved - Initial Treatment Plan Initial Treatment Plan: 1) Continue Vistaril 50 mg po Q 4hrs prn for anxiety and Melatonin 10 mg po HS prn for insomnia. 2) Continue inpatient rehabilitation
[2019-12-08] MEDS: hydrOXYzine PAMOATE 25 MG CAPSULE (FP) PO SCH ×3 (13:42→21:29)
[2019-12-08] MEDS: BACITRACIN 0.9 GM PACKET TP SCH ×2 (13:42→21:29)
[2019-12-08] MEDS: NICOTINE 21 MG/24 HOURS TOPICAL PATCH TD SCH (13:43)
[2019-12-08] MEDS: PRENATAL VITAMINS W/ FOLIC ACID TABLET (FP) PO SCH (13:43)
[2019-12-08] MEDS: ACETAMINOPHEN 325 MG TABLET (FP) PO PRN ×2 (13:43→18:02)
[2019-12-08] MEDS: NICOTINE POLACRILEX 2 MG GUM BC PRN ×2 (18:22→21:52)
[2019-12-08] MEDS: MELATONIN 5 MG TABLETS PO PRN (21:29)
[2019-12-08] MEDS: THIAMINE HCL 100 MG TABLET (FP) PO SCH (21:29)
[2019-12-08] MEDS ORDERED: MELATONIN 5 MG TABLETS PO SCH (22:00)
[2019-12-09] MEDS: ACETAMINOPHEN 325 MG TABLET (FP) PO PRN ×3 (05:50→17:51)
[2019-12-09] MEDS: hydrOXYzine PAMOATE 25 MG CAPSULE (FP) PO SCH ×2 (05:50→09:39)
[2019-12-09] MEDS: NICOTINE POLACRILEX 2 MG GUM BC PRN ×3 (05:51→12:23)
[2019-12-09] MEDS: BACITRACIN 0.9 GM PACKET TP SCH ×2 (09:40→21:25)
[2019-12-09] MEDS: PRENATAL VITAMINS W/ FOLIC ACID TABLET (FP) PO SCH (09:40)
[2019-12-09] MEDS: NICOTINE 21 MG/24 HOURS TOPICAL PATCH TD SCH (09:40)
[2019-12-09 10:30] LABS: PH,URINE 5.5 (5.0-8.0); URINE APPEARANCE CLEAR; URINE BILIRUBIN NEGATIVE (NEGATIVE); URINE COLOR YELLOW; URINE GLUCOSE (UA) NEGATIVE (NEGATIVE); URINE KETONE NEGATIVE (NEGATIVE); URINE LEUK ESTERASE NEGATIVE (NEGATIVE); URINE NITRITE NEGATIVE (NEGATIVE); URINE PROTEIN NEGATIVE (NEGATIVE); URINE UROBILINOGEN 0.2 mg/dL (0.2-1.0)
[2019-12-09 10:31] LABS: HEMATOCRIT 43.5 % (35.4-49); HEMOGLOBIN 14.7 GM/dL (11.7-16.9); MCH 31.6 pg (25.7-33.7); MCHC 33.8 g/dl (32.0-35.9); MEAN CELL VOLUME 93.6 fl (80-96); MEAN PLT VOLUME 9.4 fl (7.5-11.1); PLATELET COUNT 187 K/MM3 (134-434); RBC 4.65 M/mm3 (4.00-5.60); RDW 13.4 % (11.9-15.9); WHITE BLOOD COUNT 6.9 K/mm3 (4.0-10.0)
[2019-12-09 10:32] LABS: ALBUMIN 3.7 g/dl (3.4-5.0); BILIRUBIN,TOTAL 1.1 mg/dL (0.2-1); BLOOD UREA NITROGEN 19.2 mg/dL (7-18); CALCIUM 8.6 mg/dL (8.5-10.1); CREATININE 1.1 mg/dL (0.55-1.3); TOT PROT 7.2 g/dl (6.4-8.2)
[2019-12-09] MEDS: NICOTINE POLACRILEX 4 MG GUM BUC PRN (17:52)
[2019-12-09] MEDS: hydrOXYzine PAMOATE 50 MG CAPSULE (FP) PO PRN ×2 (17:52→21:24)
[2019-12-09] MEDS: MELATONIN 5 MG TABLETS PO PRN (21:24)
[2019-12-09] MEDS: THIAMINE HCL 100 MG TABLET (FP) PO SCH (21:24)
[2019-12-10] MEDS: ACETAMINOPHEN 325 MG TABLET (FP) PO PRN (06:12)
[2019-12-10] MEDS: NICOTINE POLACRILEX 4 MG GUM BUC PRN (06:13)
[2019-12-10] MEDS: hydrOXYzine PAMOATE 50 MG CAPSULE (FP) PO PRN (06:13)
[2019-12-10 07:09] VITALS: BP 105/68; PULSE 89; TEMP 97.5
--- NOTE | 2019-12-10 08:53 | DS ---
[facility] Rehab Discharge Summary - [facility] Rehab Discharge Summary Admission Date: 12/08/19 Discharge Date: 12/10/19 - History Present History: Alcohol dependence, Cocaine dependence Pertinent Past History: Mr. Pulido presents to [facility] admitted to rehab for a history of alcohol use disorder. PMH/ Psych//Legal: none PSH: appendectomy, bilateral carpal tunnel release SOC: lives with girlfrien - Discharge Physical Exam Vital Signs: Vital Signs Temperature 97.5 F L 12/10/19 07:08 Pulse Rate 89 12/10/19 07:08 Respiratory Rate 18 12/10/19 07:08 Blood Pressure 105/68 12/10/19 07:08 O2 Sat by Pulse Oximetry (%) 99 12/10/19 07:08 Pertinent Admission Physical Exam Findings: Physical General Appearance: No apparent distress HEENTM: Normocephalic, Respiratory: No respiratory distress Neck: Supple Cardiology: S1, S2 Abdominal: +Bowel Sounds, Musculoskeletal: Steady gait, full range of Motion - Treatment Discharge Condition: Outpatient referral accepted (Patient will make an appointment at [facility].Medically stable for discharge.) Hospital Course: Patient attended groups, had 1:1 with his provider and was seen by the psychiatric service. He was adherent to his medication regimen and treatment plan. He had no acute or urgent medical problems while in rehab. - Medication Discharge Medications: Ambulatory Orders hydrOXYzine PAMOATE [Vistaril -] 25 mg PO TID PRN #30 capsule 12/10/19 - Medication-Assisted Treatment (MAT) Medication-Assisted Treatment (MAT): No - Discharge Instructions Diet, activity, other medical instructions: Diet:as tolerated Activity: as tolerated Other medical instructions: Please follow up with appointment at [facility] - Diagnosis (1) Alcohol dependence Current Visit: Yes Status: Acute (2) Cocaine dependence Current Visit: Yes Status: Chronic - Follow-up Referral Minutes to complete discharge: 20 - AMA Did Patient Leave Against Medical Advice: No
== END 2019-12-10 08:47 | disposition home or self-care (01) | DRG 772 ==
LOC: YASAS 09:10 → Y3W 11:50
PROVIDERS: ADMIT Allergy & Immunology; ATTEND Allergy & Immunology
PROC: HZ42ZZZ Group Counseling for Substance Abuse Treatment, Cognitive-Behavioral (ICD-10-PCS; principal; 2019-12-08)
DX: F10.20 Alcohol dependence, uncomplicated (principal); F14.20 Cocaine dependence, uncomplicated; F17.210 Nicotine dependence, cigarettes, uncomplicated; F19.280 Other psychoactive substance dependence with psychoactive substance-induced anxiety disorder; F19.282 Other psychoactive substance dependence with psychoactive substance-induced sleep disorder; Z87.09 Personal history of other diseases of the respiratory system; Z90.49 Acquired absence of other specified parts of digestive tract; Z87.39 Personal history of other diseases of the musculoskeletal system and connective tissue; Z98.890 Other specified postprocedural states; Z56.0 Unemployment, unspecified; Z88.6 Allergy status to analgesic agent; Z91.018 Allergy to other foods
CPT/HCPCS: 36415; 80053; 81003; 85027; U0003